=== PATIENT | female | born 1960 | race Caucasian/White ===

== ENCOUNTER 2020-04-15 05:54 | Inpatient (IN) | payer OTHER, SELFPAY ==
[2020-04-15 08:35] VITALS: BP 122/69; PULSE 73; RESP 16; TEMP 37.2; O2SAT 97
--- NOTE | 2020-04-15 09:01 | PM.HP.1 ---
History of Present Illness History of Present Illness Date Patient Seen: 04/15/20 Time Patient Seen: 09:01 Chief complaint: Small bowl obstruction Narrative: Colleen Britt is a 59-year-old female with a past medical history of gastritis, prior who presented to [facility] for abdominal pain starting at 2:00 p.m. yesterday. Pain was initially epigastric but then expanded to her entire belly with worsening abdominal distension, the pain migrated as well to her back. She also had nausea and persistent vomiting. She had had a migraine earlier in the day and took some naproxen so she thought this might be related to gastritis. When her symptoms continued she sought care at the emergency room around midnight. In the [facility] Emergency Room, her vital signs were unremarkable, chemistries revealed a potassium of 2.8, chloride of 97, creatinine 0.86, glucose of 161. CBC was unremarkable. Hepatic function was also unremarkable. Her UA was negative for any source of infection. Troponin was negative. And lipase was unremarkable. CT scan of her abdomen showed a high-grade small bowel obstruction with dilation up to 3.9 cm. An NG-tube was placed and pain medication was provided. Patient was transferred to [facility] for further management after consultation with General surgery, Dr. Melcohr. Patient History Medical History (Updated 04/15/20 @ 09:11 by Neal Grady DO) Gastritis Surgical History (Updated 04/15/20 @ 09:11 by Neal Grady DO) History of abdominoplasty Previous section Family & Social History Family History (Updated 04/15/20 @ 09:11 by Neal Grady DO) Father Hypertension Mother Hypertension Social History: EtOH: daily 1-2 glasses of wine Illicit substance use: denies Smoking: denies Tobacco & Substance use: Denies tobacco use Meds Home Medications and Allergies Home Medications Medication Instructions Recorded Confirmed Type alprazolam 0.5 mg PO PRN PRN 04/15/20 04/15/20 History clonazepam 0.5 mg PO PRN PRN 04/15/20 04/15/20 History cyclosporine [Restasis] 1 drp EYE-BOTH DAILY 04/15/20 04/15/20 History desvenlafaxine succinate 50 mg PO DAILY 04/15/20 04/15/20 History Allergies Allergy/AdvReac Type Severity Reaction Status Date / Time morphine Allergy Severe Anaphylaxis Verified 04/15/20 08:48 Penicillins AdvReac Severe Anaphylaxis Verified 04/15/20 08:48 Review of Systems Review of Systems Narrative: All other systems reviewed with the patient and are negative unless otherwise stated. Exam Vital Signs (past 8 hours): Oxygen Delivery Method Room Air Narrative Exam Narrative: GENERAL APPEARANCE: Well developed, well nourished female in no acute distress. SKIN: Inspection of the skin reveals no rashes, ulcerations or petechiae. HEENT: Normocephalic atraumatic, extraocular muscles are intact, oropharynx is clear and mucous membranes are moist, neck is supple without adenopathy. NG tube in place. NECK: Supple and symmetric. There was no thyroid enlargement, and no tenderness, or masses were felt. CHEST: Normal AP diameter and normal contour without any kyphoscoliosis. LUNGS: Auscultation of the lungs revealed no wheezes, rhonchi, or rales. CARDIOVASCULAR: There was a regular rate and rhythm without any murmurs, gallops, rubs. Peripheral pulses were 2+ and symmetric. ABDOMEN: Soft and nontender. No ascites was noted. MUSCULOSKELETAL: There was no tenderness or effusions noted. Muscle strength and tone were normal. EXTREMITIES: No cyanosis, clubbing or edema. NEUROLOGIC: Alert and oriented x 3. Normal affect. Gait was normal. Strength is +5/5 in the Upper Extremities and Lower Extremities Bilaterally. Sensation to touch was normal. Objective Imaging CT scan - abdomen: Radiologist's impression: [facility] [id number] PATIENT NAME: COLLEEN BRITT : 1960 GENDER: F EXAM DATE: 04/15/2020 1:38 ORDERED FROM: [facility] ORDERING PHYSICIAN: MICK BLACKWOOD CC: ?- ? ? ? CONTRAST: 100mL ISOVUE 300 READING STATION ID: [id number] mGy: 6.03 PROCEDURE: CT ABDOMEN PELVIS WITH CONTRAST INDICATIONS: Epigastric pain TECHNIQUE: After the administration of intravenous contrast, 5 mm thick sections acquired from the diaphragm to the symphysis. 5 mm coronal and sagittal reformats were acquired. For radiation dose reduction, the following was used: automated exposure control, adjustment of mA and/or kV according to patient size. COMPARISON: None. FINDINGS: Image quality: Excellent. ABDOMEN: Lung bases: Lung bases are clear. Heart size is normal. Solid organs: Liver is normal in size and enhancement. Gallbladder is unremarkable. Biliary system is non dilated. Pancreas enhances normally. Spleen is normal in size and enhancement. No adrenal nodules. Kidneys demonstrate normal size and enhancement, without hydronephrosis. Peritoneum and bowel: High-grade small-bowel obstruction at the level of the distal jejunum or proximal ileum. Jejunal loops measure up to 3.9 cm in diameter. No free air or free fluid or abscess cavity noted. Nodes and vessels: No retroperitoneal or mesenteric adenopathy by size criteria. Aorta and inferior vena cava are normal in size. Miscellaneous: No ventral hernias. PELVIS: Continued Report - Page 2 of 2 PATIENT NAME: COLLEEN BRITT : 1960 GENDER: F EXAM DATE: 04/15/2020 1:38 ORDERED FROM: [facility] ORDERING PHYSICIAN: MICK BLACKWOOD CC: ?- ? ? ? CONTRAST: 100mL ISOVUE 300 READING STATION ID: [id number] mGy: 6.03 Genitourinary: Bladder wall thickness is normal. Miscellaneous: No inguinal hernias or adenopathy. Bones: No suspicious bony lesions. No vertebral body compression fractures. IMPRESSION: High-grade small-bowel obstruction at the level of the distal jejunum or proximal ileum. Comment: Final report is concordant with preliminary interpretation provided by [facility]. Reviewed by: Alden Roper M.D. on 04/15/2020 at 7:46 Approved by: Alden Roper M.D. on 04/15/2020 at 7:48 Labs Result Diagrams: 04/15/20 09:25 04/15/20 09:25 Assessment & Plan Assessment & Plan narrative: Colleen Britt is a 59-year-old female with a past medical history of gastritis, prior who presented to [facility] for abdominal pain starting at 2:00 p.m. yesterday, she is admitted with a small-bowel obstruction. 1. Small-bowel obstruction, acute, present on admission -likely secondary to adhesions from prior , management per surgery. Currently with NG tube to intermittent suction. Abdominal distension and pain have improved with NG tube placement. -continue NPO and IV fluids -pain control with Dilaudid given morphine allergy -surgery, Dr. Melchor, to evaluate and manage. 2. Hypokalemia, acute - secondary to GI losses. Will provide IV fluids, repeat labs and replete if necessary. 3. Elevated blood glucose - glucose 161 on admission labs. Will check an A1c. Code: full Dispo: admit as inpatient as her stay is expected to exceed two midnights. COVID-19 COVID-19 status: Negative
[2020-04-15 09:13] VITALS: BMI 21.4
[2020-04-15] MEDS: SODIUM CHLORIDE 0.9% 1,000 ML 100 ML IV (09:32)
[2020-04-15 09:40] LABS: Add Manual Diff / Slide Review NO; Basophils Absolute Auto 0 /uL (0-100); Basophils Percent Auto 0.3 % (0-2); Eosinophils Absolute Auto 0 /uL (0-450); Eosinophils Percent Auto 0.2 % (2-4); Hematocrit 35.9 % (36-46); Hemoglobin 12.2 g/dL (12.0-16.0); Lymphocytes Absolute Auto 1000 /uL (1100-4500); Mean Corpuscular HGB Conc 34.1 % (30-36); Mean Corpuscular Hemoglobin 32.8 PG (26-34); Mean Corpuscular Volume 96.3 fL (80-100); Monocytes Absolute Auto 600 /uL (0-900); Monocytes Percent Auto 8.4 % (3-14); Neutrophils Absolute Auto 5300 /uL (1500-7000); Neutrophils Percent Auto 76.1 % (50-75); Platelet Count 204 X10^3/uL (150-400); Red Blood Cell Count 3.73 X10^6/uL (4.0-5.2); Red Cell Distribution Width 12.2 % (11.6-14.8)
[2020-04-15 09:47] LABS: INR 1.1 (0.9-1.3); Prothrombin Time 12.4 SECONDS (10.1-12.7)
[2020-04-15 09:50] LABS: PTT Partial Thromboplastin Tim 27 SECONDS (26.4-36.2)
[2020-04-15 09:52] LABS: Alanine Aminotransferase 13 IU/L (<35); Albumin 3.8 g/dL (3.5-5.0); Albumin Globulin Ratio 1.5 (1.0-2.8); Alkaline Phosphatase 57 U/L (38-126); Aspartate Aminotransferase 22 IU/L (14-36); BUN Creatinine Ratio 12.5 (6-22); Bilirubin Total 0.7 mg/dL (0.2-1.3); Bilirubin Unconjugated 0.7 mg/dL (0.0-1.1); Blood Urea Nitrogen 8 mg/dL (7-17); Carbon Dioxide 29 mmol/L (22-32); Chloride 102 mmol/L (98-107); Estimated Glomerular Filt Rate > 60.0 mL/min (>60); Globulin 2.6 g/dL (1.7-4.1); Glucose 109 mg/dL (70-100); HEMOLYSIS < 15 (0-50); Magnesium 2.1 mg/dL (1.6-2.3); Potassium 3.6 mmol/L (3.4-5.1); Sodium 133 mmol/L (137-145); Total Protein 6.4 g/dL (6.3-8.2)
--- NOTE | 2020-04-15 10:15 | DI.RAD.S_ITS ---
PROCEDURE: XR ACUTE ABDOMEN SERIES INDICATIONS: sbo. evaluate gas pattern TECHNIQUE: One view chest and two views of the abdomen were acquired. COMPARISON: [facility], CR, XR ABDOMEN 1 VIEW, 04/15/2020, 4:22. [facility], CT, CT ABDOMEN PELVIS WITH CONTRAST, 04/15/2020, 1:38. FINDINGS: Surgical changes and devices: There is a nasogastric tube in the stomach. Chest: Lungs are clear. Heart size is normal. No pleural effusions. No pneumoperitoneum. Abdomen: Mild dilation of proximal small intestine and paucity of distal small bowel gas and colonic gas. No suspicious calcifications. Visualized solid organ contours appear normal. Bones: No suspicious bony lesions. IMPRESSION: Suspect continued small-bowel obstruction. Dictated by: Boy Bah M.D. on 04/15/2020 at 11:12 Approved by: Boy Bah M.D. on 04/15/2020 at 11:14
[2020-04-15] MEDS: LACTATED RINGERS 1,000 ML 150 ML IV ×2 (10:46→18:09)
[2020-04-15] MEDS: ONDANSETRON 4 MG/2 ML INJ IV (10:46)
[2020-04-15 11:38] VITALS: BP 108/67; PULSE 71; RESP 16; TEMP 36.9; O2SAT 97
[2020-04-15] MEDS: TETRACAINE/BENZOCAINE/BUTAMBEN (CETACAINE) BOTTLE 1 SPRAY TOP (12:15)
--- NOTE | 2020-04-15 13:07 | DI.RAD.S_ITS ---
PROCEDURE: FL SMALL BOWEL FOLLOW THROUGH INDICATIONS: sbo. complete vs [partial. therapeutic COMPARISON: [facility], CR, XR ACUTE ABDOMEN SERIES, 04/15/2020, 10:34. FINDINGS: KUB: Preprocedural community director film demonstrates a nasogastric tube in the stomach. The bowel gas pattern nonspecific with paucity of distal small bowel and colonic gas. No suspicious abdominal calcifications. Visualized solid organ contours appear normal. No suspicious bony abnormalities. There is excreted contrast in the urinary bladder. Small bowel: There is rapid transit time of barium through the small bowel with oral contrast within colon within 20 minutes. Small bowel loops are slightly prominent in caliber measuring up to 3 cm. Mucosal folds are smooth and of normal thickness. No strictures, intraluminal masses, or extrinsic mass effects are noted. The terminal ileum is identified, and is normal in morphology. IMPRESSION: Small bowel obstruction appears resolved. There is rapid transit time of barium through small bowel with oral contrast reaching colon within 20 minutes. Dictated by: Boy Bah M.D. on 04/15/2020 at 17:08 Approved by: Boy Bah M.D. on 04/15/2020 at 17:10
[2020-04-15] MEDS: KETOROLAC 30 MG/ML VIAL IV ×2 (13:17→19:32)
[2020-04-15] MEDS: LORazepam 2 MG/ML INJ 0.5 MG IV ×2 (13:26→19:33)
--- NOTE | 2020-04-15 13:36 | PC.NURSE ---
Patient c/o of headache that she feels is related to not taking her anti depressant medication today. Patient became very anxious and c/o of return of nausea. Dr. Melchor came to bedside to evaluate and speak with patient. Medicated with ativan as ordered for anxiety, as well as toradol as ordered for her headache pain. Patient declined effexor medication orally as she felt she would not be able to swallow it safely with the NG tube in place. Call light within reach, continue to monitor.
--- NOTE | 2020-04-15 13:51 | PC.ADMIT ---
[address] [facility] Admission Note: Patient admitted to room 208 at 835am, oriented to room and call light. VSS. Patient states she is starting to feel better after dose of dilaudid and zofran were given at [facility] prior to transport. Declines abdominal pain or n/v at this time. NGT to right nare in place and placed to intermittent suction as ordered. Dr. Melchor was paged regarding patient's arrival. Dr. Grady was in to see patient initially. Patient's Bill in at bedside. Call light within reach, and bed alarm active for safety. Continue to follow with plan of care. The patient,Libia Britt,59 y/o, was given written information regarding hospital policies, unit procedures and contact persons. Patient's smoking status: Never smoker. Vital Signs - 8 hr 04/15/20 08:35 04/15/20 11:38 Temperature 98.9 F 98.5 F Pulse Rate 73 71 Respiratory Rate 16 16 Blood Pressure 122/69 108/67 Pulse Oximetry 97 97
--- NOTE | 2020-04-15 13:56 | PC.NURSE ---
0649 Small bowel follow through test started by radiology. NG tube to remained clamped at this time during test until directed. Patient states her headache is feeling better from medications. Given warm blankets and now relaxing comfortably.
[2020-04-15 15:21] VITALS: BP 112/72; PULSE 89; RESP 20; TEMP 36.6; O2SAT 95
--- NOTE | 2020-04-15 15:21 | CM.DANOTE ---
Discharge Planning/Care Management DCP: assessment: case received and discussed this morning in Team Rounds. Dr. Grady noted that case would likely be taken over by [facility] and he would discuss same today with Dr. Melchor. EMR reviewed. Went to check in with pt this afternoon but she was in middle of small bowel follow-through with radiology. Case has now officially been taken over by Dr. Melchor and partners. Pt is a 59 year old female who admitted at 0554 this morning: sent over from [facility] for dx of high grade small bowel obstruction. NGT in place Spouse Bill is designated visitor/advocate and was at bedside. Payer: [facility] Admission status: INPT: confirmed by UR TAYLOR Renae. P: check in with pt tomorrow to continue the d/c plan assessment process and offer assist with d/c issues and options as these arise. CM Discharge Assessment Start: 04/15/20 15:20 Freq: Status: Active Protocol: Document 04/15/20 15:20 ITV (Rec: 04/15/20 15:21 ITV [id number]) Discharge Planning Assessment Advance Directives? No History Provided By Medical Record Prior Living Arrangements House Household Members family
--- NOTE | 2020-04-15 16:35 | PM.HP.1 ---
History of Present Illness History of Present Illness Date Patient Seen: 04/15/20 Time Patient Seen: 10:00 Chief complaint: Small bowl obstruction Narrative: The patient is a woman who was transferred from [facility]. She presented to the emergency room with a one-day history of severe abdominal pain and persistent nausea and vomiting. She has had a in the distant past. She has had a tummy tuck. She also suffers from asthma. The a patient also has some abdominal pain that is somewhat diffuse. She has vomited at least 10 times. No hematemesis and no passage of blood per rectum. An NG tube was placed at [facility] prior to her transfer. She was also give potassium to replace a low potassium level of 2.8. Patient History Medical History (Updated 04/15/20 @ 16:42 by Judson Melchor MD) Gastritis Surgical History History of abdominoplasty Previous section Family & Social History Family History Father Hypertension Mother Hypertension Social History: household members family Prior Living Arrangements House Safety & Behavioral: Feels Safe in Current Yes Environment Been Physically Hurt or No Threatened By a Person Suicidal Ideation Description None Suicide Plan Description No Plan Tobacco & Substance use: Smoking Status Never smoker alcohol intake frequency 0-2 drinks per day Substance Use Type does not use Meds Home Medications and Allergies Home Medications Medication Instructions Recorded Confirmed Type alprazolam 0.5 mg PO PRN PRN 04/15/20 04/15/20 History clonazepam 0.5 mg PO PRN PRN 04/15/20 04/15/20 History cyclosporine [Restasis] 1 drp EYE-BOTH DAILY 04/15/20 04/15/20 History desvenlafaxine succinate 50 mg PO DAILY 04/15/20 04/15/20 History Allergies Allergy/AdvReac Type Severity Reaction Status Date / Time morphine Allergy Severe Anaphylaxis Verified 04/15/20 08:48 Penicillins AdvReac Severe Anaphylaxis Verified 04/15/20 08:48 Review of Systems Review of Systems Narrative: Patient has no visual difficulties. No double vision pain arise earache sore throats or trouble swallowing. No cough or cold. She does suffer from asthma. Patient denies any cardiac problems, chest pain or heart attack. No hypertension. Denies black or bloody bowel movements. No seizures or blackouts. No hematuria or kidney stones. No spontaneous he bleeding though she does bruise easily. She does suffer from anxiety for which he takes medication. Denies significant depression. Exam Vital Signs (past 8 hours): - 04/15/20 11:38 04/15/20 15:21 Temperature 98.5 F 97.8 F Pulse Rate 71 89 Respiratory Rate 16 20 Blood Pressure 108/67 112/72 Pulse Oximetry 97 95 Oxygen Delivery Method Room Air Oxygen Flow Rate 0 Narrative Exam Narrative: Cooperative pleasant woman in no apparent distress. Her eyes are nonicteric. NG tube is in place. No swelling of the lids. Ears without lesion. Nasal septum midline. Oral mucosa is dry no open lesions. Neck is supple there are no nodes in the neck supraclavicular areas. Trachea is midline mobile. Thyroid is not enlarged. Lungs are clear to auscultation without rales or rhonchi. Equal percussion. Heart regular rate and rhythm without murmur gallop. No bruit in the neck. Abdomen is flat soft. No obvious tenderness. Liver and spleen are not enlarged. No ventral hernias appreciated. Patient is alert and oriented. Speech rate and content are appropriate. Affect is a little flat. Objective Labs Result Diagrams: 04/15/20 09:25 04/15/20 09:25 Labs: Laboratory Results - last 24 hr 04/15/20 04/15/20 04/15/20 09:25 09:25 09:25 WBC 7.0 RBC 3.73 L Hgb 12.2 Hct 35.9 L MCV 96.3 MCH 32.8 MCHC 34.1 RDW 12.2 Plt Count 204 Neut % (Auto) 76.1 H Lymph % (Auto) 15.0 L [place] % (Auto) 8.4 Eos % (Auto) 0.2 L Baso % (Auto) 0.3 Neut # (Auto) 5300 Lymph # (Auto) 1000 L [place] # (Auto) 600 Eos # (Auto) 0 Baso # (Auto) 0 PT 12.4 INR 1.1 APTT 27 Sodium 133 L Potassium 3.6 Chloride 102 Carbon Dioxide 29 BUN 8 Creatinine 0.64 Estimated GFR > 60.0 BUN/Creatinine Ratio 12.5 Glucose 109 H Hemoglobin A1c Calcium 9.0 Magnesium 2.1 Total Bilirubin 0.7 Conjugated Bilirubin 0.0 Unconjugated Bilirubin 0.7 AST 22 ALT 13 Alkaline Phosphatase 57 Total Protein 6.4 Albumin 3.8 Globulin 2.6 Albumin/Globulin Ratio 1.5 04/15/20 09:25 WBC RBC Hgb Hct MCV MCH MCHC RDW Plt Count Neut % (Auto) Lymph % (Auto) [place] % (Auto) Eos % (Auto) Baso % (Auto) Neut # (Auto) Lymph # (Auto) [place] # (Auto) Eos # (Auto) Baso # (Auto) PT INR APTT Sodium Potassium Chloride Carbon Dioxide BUN Creatinine Estimated GFR BUN/Creatinine Ratio Glucose Hemoglobin A1c 5.0 Calcium Magnesium Total Bilirubin Conjugated Bilirubin Unconjugated Bilirubin AST ALT Alkaline Phosphatase Total Protein Albumin Globulin Albumin/Globulin Ratio Assessment & Plan Assessment and plan (1) Asthma: Qualifiers: Asthma severity: mild Asthma persistence: persistent Asthma complication type: uncomplicated Qualified Code(s): J45.30 - Mild persistent asthma, uncomplicated Status: Acute (2) Anxiety: Problem details: And patient given if her Effexor and NG clamped. Status: Acute (3) Small bowel obstruction: Problem details: NG tube was placed and the stomach was suctioned out. Will perform a small-bowel follow-through with water-soluble contrast. Hopefully this will open up her intestines. She would prefer not to have narcotics but rather nonsteroidals for her pain and therefore I have added Toradol to her medication list. Status: Acute
--- NOTE | 2020-04-15 16:43 | P.PN_ITS ---
Subjective Subjective Date Patient Seen: 04/15/20 Time Patient Seen: 16:43 Interval history: Small-bowel follow-through performed. Patient has had 4 large bowel movements. She no longer has any abdominal pain. Does complain of a sore throat. Exam Vital Signs (past 8 hours): - 04/15/20 11:38 04/15/20 15:21 Temperature 98.5 F 97.8 F Pulse Rate 71 89 Respiratory Rate 16 20 Blood Pressure 108/67 112/72 Pulse Oximetry 97 95 Oxygen Delivery Method Room Air Oxygen Flow Rate 0 Narrative Exam Narrative: Soft. Nontender. Objective Labs Result Diagrams: 04/15/20 09:25 04/15/20 09:25 Labs: Laboratory Results - last 24 hr 04/15/20 04/15/20 04/15/20 09:25 09:25 09:25 WBC 7.0 RBC 3.73 L Hgb 12.2 Hct 35.9 L MCV 96.3 MCH 32.8 MCHC 34.1 RDW 12.2 Plt Count 204 Neut % (Auto) 76.1 H Lymph % (Auto) 15.0 L [place] % (Auto) 8.4 Eos % (Auto) 0.2 L Baso % (Auto) 0.3 Neut # (Auto) 5300 Lymph # (Auto) 1000 L [place] # (Auto) 600 Eos # (Auto) 0 Baso # (Auto) 0 PT 12.4 INR 1.1 APTT 27 Sodium 133 L Potassium 3.6 Chloride 102 Carbon Dioxide 29 BUN 8 Creatinine 0.64 Estimated GFR > 60.0 BUN/Creatinine Ratio 12.5 Glucose 109 H Hemoglobin A1c Calcium 9.0 Magnesium 2.1 Total Bilirubin 0.7 Conjugated Bilirubin 0.0 Unconjugated Bilirubin 0.7 AST 22 ALT 13 Alkaline Phosphatase 57 Total Protein 6.4 Albumin 3.8 Globulin 2.6 Albumin/Globulin Ratio 1.5 04/15/20 09:25 WBC RBC Hgb Hct MCV MCH MCHC RDW Plt Count Neut % (Auto) Lymph % (Auto) [place] % (Auto) Eos % (Auto) Baso % (Auto) Neut # (Auto) Lymph # (Auto) [place] # (Auto) Eos # (Auto) Baso # (Auto) PT INR APTT Sodium Potassium Chloride Carbon Dioxide BUN Creatinine Estimated GFR BUN/Creatinine Ratio Glucose Hemoglobin A1c 5.0 Calcium Magnesium Total Bilirubin Conjugated Bilirubin Unconjugated Bilirubin AST ALT Alkaline Phosphatase Total Protein Albumin Globulin Albumin/Globulin Ratio PFSH Medical History Gastritis Surgical History History of abdominoplasty Previous section Family History Father Hypertension Mother Hypertension Social History household members: family Smoking Status: Never smoker Assessment & Plan Assessment & Plan narrative: Will remove NG in begin clear liquids. Full liquids in the morning. If tolerated could probably be discharged. Advised her not to overdo it tonight.
[2020-04-15 19:32] VITALS: BP 98/66; PULSE 80; RESP 18; TEMP 36.8; O2SAT 100
[2020-04-15 19:36] VITALS: O2SAT 100
[2020-04-15] MEDS: HYDROMORPHONE 1 MG INJ IV (20:50)
[2020-04-15] MEDS: VENLAFAXINE ER 75 MG CAP PO (20:50)
[2020-04-15 23:00] VITALS: O2SAT 97
[2020-04-16] VITALS (12 sets, daily range): BP systolic 101–116; BP diastolic 66–74; PULSE 64–83; RESP 13–18; TEMP 36.2–37.7; O2SAT 97–100
[2020-04-16] MEDS: LACTATED RINGERS 1,000 ML 150 ML IV ×2 (00:31→12:12)
[2020-04-16] MEDS: ONDANSETRON 4 MG/2 ML INJ IV ×2 (02:25→06:10)
[2020-04-16] MEDS: HYDROMORPHONE 1 MG INJ IV ×2 (02:28→06:10)
--- NOTE | 2020-04-16 06:38 | PC.NURSE ---
Patient complains of migraine headache and nausea (approximately every 3-4 hours) with pain rated 7/10 on the numeric scale. Anti-emetic and pain medication administered according to MAR. Symptoms relieved within ten-fifteen minutes of medication administration.
[2020-04-16] MEDS: ACETAMINOPHEN 325 MG TABLET 650 MG PO ×3 (08:07→22:50)
[2020-04-16] MEDS: VENLAFAXINE ER 75 MG CAP PO (08:07)
[2020-04-16 08:25] LABS: BUN Creatinine Ratio 12.7 (6-22); Blood Urea Nitrogen 8 mg/dL (7-17); Calcium 8.7 mg/dL (8.4-10.2); Carbon Dioxide 32 mmol/L (22-32); Chloride 106 mmol/L (98-107); Estimated Glomerular Filt Rate > 60.0 mL/min (>60); Glucose 102 mg/dL (70-100); HEMOLYSIS < 15 (0-50); Magnesium 2.1 mg/dL (1.6-2.3); Phosphorous 3.4 mg/dL (2.5-4.5); Sodium 135 mmol/L (137-145)
[2020-04-16] MEDS: KETOROLAC 30 MG/ML VIAL IV ×2 (12:13→18:33)
[2020-04-16] MEDS: LORazepam 2 MG/ML INJ 0.5 MG IV ×3 (12:13→23:53)
--- NOTE | 2020-04-16 14:42 | CM.DPC ---
DCP: continued: met with pt and her Sukumar as planned; introduced self and role. Pt confirms that her plan is for home when stable for same. She states that Dr. Otero was here this morning to check in on her. She will continue to treat her with a plan for likely d/c home tomorrow if she if GI function continues to improve. Dr. Otero's progess note is not yet available to review but TAYLOR Lange spoke with her and confirms same.
--- NOTE | 2020-04-16 15:56 | DI.RAD.S_ITS ---
PROCEDURE: XR KUB INDICATIONS: ileus, sbo, follow up sbft TECHNIQUE: One view of the abdomen acquired. COMPARISON: [facility], CR, XR ACUTE ABDOMEN SERIES, 04/15/2020, 10:34. FINDINGS: Surgical changes and devices: None. Bowel: Oral contrast is seen in descending colon and sigmoid colon. Air distended bowel loops throughout the abdomen is seen more consistent with ileus. No gross pneumoperitoneum. Soft tissues: No suspicious abdominal calcifications. Visualized solid organ contours appear normal in size. Bones: No suspicious bony lesions. IMPRESSION: Oral contrast material is seen in descending colon and sigmoid colon. Air distended bowel loops throughout the abdomen suggestive of resolving distal small bowel obstruction versus ileus. No gross free air. Dictated by: Sean Elizondo M.D. on 04/16/2020 at 16:42 Approved by: Sean Elizondo M.D. on 04/16/2020 at 16:43
--- NOTE | 2020-04-16 17:18 | P.PN_ITS ---
Subjective Subjective Date Patient Seen: 04/16/20 Time Patient Seen: 17:19 Interval history: Pt passing gas and stool. C/o persistent nausea which seems more associated with her migraine headache than with her SBO. Exam Vital Signs (past 8 hours): - 04/16/20 10:13 04/16/20 10:49 04/16/20 13:08 Temperature 97.1 F L 97.9 F Pulse Rate 75 64 Respiratory Rate 13 14 Blood Pressure 101/74 113/70 Pulse Oximetry 97 97 97 04/16/20 14:38 04/16/20 15:24 Temperature 98.5 F Pulse Rate 67 Respiratory Rate 18 Blood Pressure 116/72 Pulse Oximetry 97 98 Oxygen Delivery Method Room Air Oxygen Flow Rate 0 Narrative Exam Narrative: GENERAL: Alert, comfortable. Appears stated age. Answers questions promptly and appropriately. Vital signs noted. HENT: Normocephalic, atraumatic. Hearing intact. EYES: Conjunctiva pink, sclera white, no periorbital swelling. CARDIOVASCULAR: Regular rate. No pedal edema. RESPIRATORY: Non-tachypneic, breathing comfortably on room air. GASTROINTESTINAL: Abdomen soft, mildly distended, nontender GENITALURINARY: No flank tenderness. MUSCULOSKELETAL: Equal tone and mass bilaterally. SKIN: Warm, dry, soft, appropriate color for ethnicity. No other lesions, rashes, or wounds. NEURO: Alert and Oriented X 3. No gross sensory deficits, or cognitive issues. PSYCH: Appropriate affect and mood. Objective Imaging Abdominal x-ray: Radiologist's impression: Resolving ileus/resolving SBO Labs Result Diagrams: 04/15/20 09:25 04/16/20 08:05 Labs: Laboratory Results - last 24 hr 04/16/20 04/16/20 08:05 08:05 Sodium 135 L Potassium 4.0 Chloride 106 Carbon Dioxide 32 BUN 8 Creatinine 0.63 Estimated GFR > 60.0 BUN/Creatinine Ratio 12.7 Glucose 102 H Calcium 8.7 Phosphorus 3.4 Magnesium 2.1 PFSH Medical History Gastritis Surgical History History of abdominoplasty Previous section Family History Father Hypertension Mother Hypertension Social History household members: family Smoking Status: Never smoker Assessment & Plan Assessment and plan (1) Small bowel obstruction: Problem details: NG tube was placed and the stomach was suctioned out. Will perform a small- bowel follow-through with water-soluble contrast. Hopefully this will open up her intestines. She would prefer not to have narcotics but rather nonsteroidals for her pain and therefore I have added Toradol to her medication list. Status: Acute (2) Migraine: Status: Acute (3) Nausea: Status: Acute Assessment & Plan narrative: This is a 59-year-old woman with resolving bowel obstruction after successful small-bowel follow-through. She has had persistent nausea and headache today, which is gradually improving with NSAIDs, Tylenol, and caffeine. We are slowly advancing her diet, and will consider dispo pending she is able to tolerate p.o. without nausea, and passed things through rectally. Plan: Home meds, pain meds as needed Repeat x-ray Ambulate as tolerated Advance diet as tolerated COVID-19 COVID-19 status: Negative Result date/Date tested (Pos, Neg/Pending): 04/15/20 Time Spent With Patient Time with patient: 15-24 minutes Quality VTE Deep Vein Thrombosis/Pulmonary Embolism Present on Admission: No
[2020-04-17] MEDS: KETOROLAC 30 MG/ML VIAL IV
[2020-04-17 00:05] VITALS: O2SAT 100
[2020-04-17 03:40] VITALS: BP 115/75; PULSE 73; RESP 15; O2SAT 97
[2020-04-17 04:00] VITALS: O2SAT 97
[2020-04-17 05:47] LABS: Add Manual Diff / Slide Review NO; Basophils Absolute Auto 0 /uL (0-100); Basophils Percent Auto 0.6 % (0-2); Eosinophils Absolute Auto 100 /uL (0-450); Eosinophils Percent Auto 3.8 % (2-4); Hematocrit 31.8 % (36-46); Hemoglobin 10.8 g/dL (12.0-16.0); Lymphocytes Absolute Auto 1300 /uL (1100-4500); Lymphocytes Percent Auto 34.5 % (25-40); Mean Corpuscular HGB Conc 33.8 % (30-36); Mean Corpuscular Volume 97.6 fL (80-100); Monocytes Absolute Auto 300 /uL (0-900); Monocytes Percent Auto 8.6 % (3-14); Neutrophils Absolute Auto 2000 /uL (1500-7000); Neutrophils Percent Auto 52.5 % (50-75); Platelet Count 148 X10^3/uL (150-400); Red Blood Cell Count 3.26 X10^6/uL (4.0-5.2); Red Cell Distribution Width 12.3 % (11.6-14.8); White Blood Cell Count 3.9 X10^3/uL (4.5-11.0)
[2020-04-17 06:09] LABS: BUN Creatinine Ratio 9.1 (6-22); Blood Urea Nitrogen 6 mg/dL (7-17); Calcium 8.5 mg/dL (8.4-10.2); Carbon Dioxide 34 mmol/L (22-32); Chloride 105 mmol/L (98-107); Estimated Glomerular Filt Rate > 60.0 mL/min (>60); Glucose 99 mg/dL (70-100); HEMOLYSIS < 15 (0-50); Magnesium 2.1 mg/dL (1.6-2.3); Potassium 3.9 mmol/L (3.4-5.1); Sodium 137 mmol/L (137-145)
[2020-04-17] MEDS: LACTATED RINGERS 1,000 ML 50 ML IV (06:25)
[2020-04-17 08:48] VITALS: BP 115/71; PULSE 70; RESP 15; TEMP 37.4; O2SAT 97
[2020-04-17] MEDS: PSYLLIUM HUSK 1 PACKET PO (08:55)
[2020-04-17] MEDS: VENLAFAXINE ER 75 MG CAP PO (08:55)
--- NOTE | 2020-04-17 11:05 | P.DS_ITS ---
History of Present Illness History of Present Illness Chief complaint: Small bowl obstruction Narrative: Age/Sex: 59 / F Date of Service: 04/15/20Provider: Judson Melchor MD History of Present Illness History of Present Illness Date Patient Seen: 04/15/20 Time Patient Seen: 10:00 Chief complaint: Small bowl obstruction Narrative: The patient is a woman who was transferred from [facility]. She presented to the emergency room with a one-day history of severe abdominal pain and persistent nausea and vomiting. She has had a in the distant past. She has had a tummy tuck. She also suffers from asthma. The a patient also has some abdominal pain that is somewhat diffuse. She has vomited at least 10 times. No hematemesis and no passage of blood per rectum. An NG tube was placed at [place] prior to her transfer. She was also give potassium to replace a low potassium level of 2.8. Patient History Medical History (Updated 04/15/20 @ 16:42 by Judson Melchor MD) Gastritis Surgical History History of abdominoplasty Previous section Family & Social History Family History Father Hypertension Mother Hypertension Social History: household members family Prior Living Arrangements House Safety & Behavioral: Feels Safe in Current Yes Environment Been Physically Hurt or No Threatened By a Person Suicidal Ideation Description None Suicide Plan Description No Plan Tobacco & Substance use: Smoking Status Never smoker alcohol intake frequency 0-2 drinks per day Substance Use Type does not use Meds Home Medications and Allergies Home Medications Medication Instructions Recorded Confirmed Type alprazolam 0.5 mg PO PRN PRN 04/15/20 04/15/20 History clonazepam 0.5 mg PO PRN PRN 04/15/20 04/15/20 History cyclosporine [Restasis] 1 drp EYE-BOTH DAILY 04/15/20 04/15/20 History desvenlafaxine succinate 50 mg PO DAILY 04/15/20 04/15/20 History Allergies Allergy/AdvReac Type Severity Reaction Status Date / Time morphine Allergy Severe Anaphylaxis Verified 04/15/20 08:48 Penicillins AdvReac Severe Anaphylaxis Verified 04/15/20 08:48 Review of Systems Review of Systems Narrative: Patient has no visual difficulties. No double vision pain arise earache sore throats or trouble swallowing. No cough or cold. She does suffer from asthma. Patient denies any cardiac problems, chest pain or heart attack. No hypertension. Denies black or bloody bowel movements. No seizures or blackouts. No hematuria or kidney stones. No spontaneous he bleeding though she does bruise easily. She does suffer from anxiety for which he takes medication. Denies significant depression. Exam Vital Signs (past 8 hours):- 04/15/20 11:38 04/15/20 15:21 Temperature 98.5 F 97.8 F Pulse Rate 71 89 Respiratory Rate 16 20 Blood Pressure 108/67 112/72 Pulse Oximetry 97 95 Oxygen Delivery Method Room Air Oxygen Flow Rate 0 Narrative Exam Narrative: Cooperative pleasant woman in no apparent distress. Her eyes are nonicteric. NG tube is in place. No swelling of the lids. Ears without lesion. Nasal septum midline. Oral mucosa is dry no open lesions. Neck is supple there are no nodes in the neck supraclavicular areas. Trachea is midline mobile. Thyroid is not enlarged. Lungs are clear to auscultation without rales or rhonchi. Equal percussion. Heart regular rate and rhythm without murmur gallop. No bruit in the neck. Abdomen is flat soft. No obvious tenderness. Liver and spleen are not enlarged. No ventral hernias appreciated. Patient is alert and oriented. Speech rate and content are appropriate. Affect is a little flat. Objective Labs Result Diagrams: 04/15/20 09:25 document embedded image 04/15/20 09:25 document embedded image Labs:Laboratory Results - last 24 hr 04/15/20 04/15/20 04/15/20 09:25 09:25 09:25 WBC 7.0 RBC 3.73 L Hgb 12.2 Hct 35.9 L MCV 96.3 MCH 32.8 MCHC 34.1 RDW 12.2 Plt Count 204 Neut % (Auto) 76.1 H Lymph % (Auto) 15.0 L [place] % (Auto) 8.4 Eos % (Auto) 0.2 L Baso % (Auto) 0.3 Neut # (Auto) 5300 Lymph # (Auto) 1000 L [place] # (Auto) 600 Eos # (Auto) 0 Baso # (Auto) 0 PT 12.4 INR 1.1 APTT 27 Sodium 133 L Potassium 3.6 Chloride 102 Carbon Dioxide 29 BUN 8 Creatinine 0.64 Estimated GFR > 60.0 BUN/Creatinine Ratio 12.5 Glucose 109 H Hemoglobin A1c Calcium 9.0 Magnesium 2.1 Total Bilirubin 0.7 Conjugated Bilirubin 0.0 Unconjugated Bilirubin 0.7 AST 22 ALT 13 Alkaline Phosphatase 57 Total Protein 6.4 Albumin 3.8 Globulin 2.6 Albumin/Globulin Ratio 1.5 04/15/20 09:25 WBC RBC Hgb Hct MCV MCH MCHC RDW Plt Count Neut % (Auto) Lymph % (Auto) [place] % (Auto) Eos % (Auto) Baso % (Auto) Neut # (Auto) Lymph # (Auto) [place] # (Auto) Eos # (Auto) Baso # (Auto) PT INR APTT Sodium Potassium Chloride Carbon Dioxide BUN Creatinine Estimated GFR BUN/Creatinine Ratio Glucose Hemoglobin A1c 5.0 Calcium Magnesium Total Bilirubin Conjugated Bilirubin Unconjugated Bilirubin AST ALT Alkaline Phosphatase Total Protein Albumin Globulin Albumin/Globulin Ratio Assessment & Plan Assessment and plan (1) Asthma: Qualifiers: Asthma severity: mild Asthma persistence: persistent Asthma complication type: uncomplicated Qualified Code(s): J45.30 - Mild persistent asthma, uncomplicated Status: Acute (2) Anxiety: Problem details: And patient given if her Effexor and NG clamped. Status: Acute (3) Small bowel obstruction: Problem details: NG tube was placed and the stomach was suctioned out. Will perform a small- bowel follow-through with water-soluble contrast. Hopefully this will open up h er intestines. She would prefer not to have narcotics but rather nonsteroidals for her pain and therefore I have added Toradol to her medication list. Status: Acute Discharge Providers Provider Date of admission: 04/15/20 05:54 Discharge Date: 04/17/20 Primary care physician: Dre Crocker MD Discharge provider: Marilyn Otero MD Summary Hospital Course Discharge Diagnosis: Recurrent SBO Hospital Course: Pt admitted with obstructive symptoms. Obstruction resolved with GG SBFT. She remained in hospital for an additional day after resolution of her SBO because she was having an intractable migraine with nausea. This also resolved by the second day, and she was discharged home. Status at Discharge Cognitive/behavioral status at discharge: oriented Functional status at discharge: independent ambulation Overall status at discharge: patient is progressing back to baseline Time Spent with Patient Time spent: Greater than 30 minutes Exam Vital Signs (past 8 hours): - 04/17/20 03:40 04/17/20 04:00 04/17/20 08:48 Temperature 99.3 F Pulse Rate 73 70 Respiratory Rate 15 15 Blood Pressure 115/75 115/71 Pulse Oximetry 97 97 97 Oxygen Delivery Method Room Air Oxygen Flow Rate 0 Narrative Exam Narrative: GENERAL: Alert, comfortable. Appears stated age. Answers questions promptly and appropriately. Vital signs noted. HENT: Normocephalic, atraumatic. Hearing intact. EYES: Conjunctiva pink, sclera white, no periorbital swelling. CARDIOVASCULAR: Regular rate. No pedal edema. RESPIRATORY: Non-tachypneic, breathing comfortably on room air. GASTROINTESTINAL: Abdomen soft, mildly distended, nontender GENITALURINARY: No flank tenderness. MUSCULOSKELETAL: Equal tone and mass bilaterally. SKIN: Warm, dry, soft, appropriate color for ethnicity. No other lesions, rashes, or wounds. NEURO: Alert and Oriented X 3. No gross sensory deficits, or cognitive issues. PSYCH: Appropriate affect and mood. Objective Imaging Abdominal x-ray: My impression: NOrmal SBFT Radiologist's impression: [address] [id number] ReportSigned Patient: Libia Britt AMR#: [id number]: 1960Acct:[id number]/Sex: 59 / FDate of Service: 04/15/20Loc: [id number] Number: [id number] Procedure: FL small bowel follow through Ordering Provider: Judson Melchor MD PROCEDURE: FL SMALL BOWEL FOLLOW THROUGH INDICATIONS: sbo. complete vs [partial. therapeutic COMPARISON: [facility], CR, XR ACUTE ABDOMEN SERIES, 04/15/2020, 10:34. FINDINGS: KUB: Preprocedural coping machine operator film demonstrates a nasogastric tube in the stomach. The bowel gas pattern nonspecific with paucity of distal small bowel and colonic gas. No suspicious abdominal calcifications. Visualized solid organ contours appear normal. No suspicious bony abnormalities. There is excreted contrast in the urinary bladder. Small bowel: There is rapid transit time of barium through the small bowel with oral contrast within colon within 20 minutes. Small bowel loops are slightly prominent in caliber measuring up to 3 cm. Mucosal folds are smooth and of normal thickness. No strictures, intraluminal masses, or extrinsic mass effects are noted. The terminal ileum is identified, and is normal in morphology. IMPRESSION: Small bowel obstruction appears resolved. There is rapid transit time of barium through small bowel with oral contrast reaching colon within 20 minutes. Dictated by: Boy Bah M.D. on 04/15/2020 at 17:08 Approved by: Boy Bah M.D. on 04/15/2020 at 17:10 Labs Result Diagrams: 04/17/20 05:10 04/17/20 05:10 Labs: Laboratory Results - last 24 hr 04/17/20 04/17/20 05:10 05:10 WBC 3.9 L RBC 3.26 L Hgb 10.8 L Hct 31.8 L MCV 97.6 MCH 33.0 MCHC 33.8 RDW 12.3 Plt Count 148 L Neut % (Auto) 52.5 D Lymph % (Auto) 34.5 [place] % (Auto) 8.6 Eos % (Auto) 3.8 Baso % (Auto) 0.6 Neut # (Auto) 2000 Lymph # (Auto) 1300 [place] # (Auto) 300 Eos # (Auto) 100 Baso # (Auto) 0 Sodium 137 Potassium 3.9 Chloride 105 Carbon Dioxide 34 H BUN 6 L Creatinine 0.66 Estimated GFR > 60.0 BUN/Creatinine Ratio 9.1 Glucose 99 Calcium 8.5 Phosphorus 3.0 Magnesium 2.1 PFSH Medical History Gastritis Surgical History History of abdominoplasty Previous section Family History Father Hypertension Mother Hypertension Social History household members: family Smoking Status: Never smoker Discharge Assessment & Plan Assessment and Plan Assessment: Recurrent SBFT likely secondary to adhesions from past surgery. Plan of Treatment: Low residual diet, use metamucil 1-2 times per day for fiber; follow up PRN with PCP. No need for surgical follow up at this time. Discharge Plan Discharge Plan Patient Disposition: Home Provider Discharge Comment: You had a small-bowel obstruction that seems to have resolved on its own. I would recommend to stay way from large amounts of vegetables at 1 time. I would completely avoid things like Kale another undigestable vegetables. Use metamucil for fiber. We recommend using a fiber supplement such as Metamucil, Benefiber, or psyllium husk. Use 2 tspn in 8 oz water once daily to start. You may increase or decrease the amount and frequency as needed. The goal is to have a soft, formed, stool without straining, and without having to sit on the toilet for more than 2 minutes to have a bowel movement. If you begin having obstructive symptoms, switch to clear liquids and see if you can get the symptoms to pass. If they do not pass, you will need to return to the ER. Discharge orders & Medications Prescriptions: New ondansetron 4 mg tablet,disintegrating 4 mg PO Q8H PRN (Reason: nausea and vomiting) Qty: 10 RF: 0 Continued desvenlafaxine succinate 50 mg tablet extended release 24 hr 50 mg PO DAILY RF: 0 Restasis 0.05 % dropperette 1 drp EYE-BOTH DAILY RF: 0 alprazolam 0.5 mg tablet 0.5 mg PO PRN PRN (Reason: Anxiety) RF: 0 clonazepam 0.5 mg tablet 0.5 mg PO PRN PRN (Reason: insomnia) RF: 0 Follow up/Referrals: Dre Crocker MD [Primary Care Provider] - (see your primary doctor in the next few weeks to follow up on your hospital admission and headaches. ) Diet/Activity/Treatments Diet: Diet as Tolerated Diet comment: Try to avoid a lot of vegetables. Activity: No restrictions. Skin/Wound/Dressing Care Report to your healthcare provider any signs of infection, such as:: increased pain Visit Report/Discharge Packet Instructions: Small Bowel Obstruction, Low-Fiber/Low-Residue Diet Discharge Data Primary Care Provider: Dre Crocker Quality VTE Deep Vein Thrombosis/Pulmonary Embolism Present on Admission: No
== END 2020-04-17 11:50 | disposition home or self-care (01) | DRG 390 ==
PROVIDERS: Internal Medicine; Surgery; Admitting Provider Specialist; PCP Family Medicine; Referring Provider Nurse Practitioner Family; Visit Provider Specialist
DX: K56.50 Intestinal adhesions [bands], unspecified as to partial versus complete obstruction (principal); E87.6 Hypokalemia; J45.30 Mild persistent asthma, uncomplicated; F41.9 Anxiety disorder, unspecified; G43.919 Migraine, unspecified, intractable, without status migrainosus
CPT/HCPCS: 36415; 74018; 74022; 74250; 80048; 80076; 83036; 83735; 84100; 85025; 85610; 85730; 99221; 99232; 99238; J1170; J1885; J2060; J2405